=== PATIENT | male | born 1980 | race Caucasian/White ===

== ENCOUNTER 2023-05-06 14:50 | Emergency (ER) | payer OTHER ==
[~2023-05-06] VITALS: Ht 172.7 cm; Wt 86.2 kg
[2023-05-06 15:21] VITALS: BP 139/94; PULSE 80; RESP 16; TEMP 96.9; O2SAT 98
[2023-05-06] MEDS ORDERED: DICYCLOMINE 10 MG CAP PO ONE (15:25)
[2023-05-06] MEDS ORDERED: ONDANSETRON 4 MG ODT PO ONE (15:25)
[2023-05-06] MEDS ORDERED: FAMOTIDINE 20 MG TAB PO ONE (15:25)
[2023-05-06 16:13] LABS: ALBUMIN 4.1 g/dL (3.4-5.0); ANION GAP 12.2 (8-16); CALCIUM 9.2 mg/dL (8.5-10.1); CARBON DIOXIDE 26.8 mmol/L (21-32); CREATININE 0.9 mg/dL (0.6-1.3); TOTAL BILIRUBIN 0.5 mg/dL (0.0-1.0)
[2023-05-06 16:14] LABS: BASOPHILS # (AUTO) 0.1 K/uL (0.00-0.22); BASOPHILS % (AUTO) 0.4 % (0.0-2.0); EOSINOPHILS # (AUTO) 0.2 K/uL (0-0.4); EOSINOPHILS % (AUTO) 1.3 % (0.0-4.0); HEMATOCRIT 42.6 % (36-52); HEMOGLOBIN 13.9 g/dL (12.0-18.0); LYMPHOCYTES # (AUTO) 2.1 K/uL (2.0-11.5); LYMPHOCYTES % (AUTO) 15.4 % (20.5-51.1); MEAN CORPUSCULAR HEMOGLOBIN 29 pg (27-31); MEAN CORPUSCULAR HGB CONC 33 g/dL (33-37); MEAN CORPUSCULAR VOLUME 87.6 fL (80-94); MONOCYTES # (AUTO) 0.8 K/uL (0.8-1.0); MONOCYTES % (AUTO) 6.2 % (1.7-9.3); NEUTROPHILS # (AUTO) 10.4 K/uL (1.8-7.7); NEUTROPHILS % (AUTO) 76.7 % (42.2-75.2); PLATELET COUNT (AUTO) 338 K/uL (140-450); RED BLOOD CELL COUNT(AUTO) 4.87 MIL/uL (4.20-6.10); RED CELL DISTRIBUTION WIDTH 13.2 % (11.6-13.7); WHITE BLOOD COUNT (AUTO) 13.5 K/uL (4.8-10.8)
[2023-05-06] MEDS ORDERED: ALUMINUM HYD/MAG/SIMETHICONE 30 ML UDC PO ONE (16:55)
[2023-05-06] MEDS ORDERED: METOCLOPRAMIDE 10 MG TAB PO ONE (16:55)
[2023-05-06] MEDS ORDERED: SUCRALFATE 1 GM TAB PO SCH (16:55)
[2023-05-06] MEDS ORDERED: HALOPERIDOL IM 5 MG/ML VIAL IM ONE (16:55)
[2023-05-06] MEDS ORDERED: METO-485 PO (18:11)
[2023-05-06] MEDS ORDERED: PANT40EC PO (18:11)
[2023-05-06] MEDS ORDERED: SUCR1TAB35 PO (18:11)
[2023-05-06 18:57] VITALS: BP 145/96; PULSE 63; RESP 18; TEMP 98.3; O2SAT 98
== END 2023-05-06 18:57 | disposition home or self-care (01) ==
LOC: MED 14:50
DX: K29.70 Gastritis, unspecified, without bleeding (principal); R11.10 Vomiting, unspecified; J45.909 Unspecified asthma, uncomplicated; Z79.899 Other long term (current) drug therapy
CPT/HCPCS: 36415; 71045; 80053; 83690; 85025; 96372; 99284; J1630; J8597; Q0162; Q0163